=== PATIENT | male | born 1945 | race Caucasian/White ===

== ENCOUNTER 2021-01-29 08:11 | Emergency (ER) | payer MEDICARE, SELFPAY ==
[2021-01-29 08:43] VITALS: BP 160/87; PULSE 97; RESP 16; TEMP 36.1; O2SAT 98
--- NOTE | 2021-01-29 09:03 | ED.GENADULT ---
HPI - General Adult General Chief complaint: Animal Bite Stated complaint: dog bite Time Seen by Provider: 01/29/21 09:03 Source: patient and RN notes reviewed Mode of arrival: ambulatory Limitations: no limitations History of Present Illness HPI narrative: 75-year-old male presents with complaints of RT arm dog bite for the past 15 hours. Fab reports during a break up of a dog fight his RT arm was bitten by his dog or another dog. Mild discomfort. No swelling. Mild redness. No new tingling or numbness. Denies immobility. No exacerbating factors. No relieving factors. Denies altered sensation and suspected foreign body. Remains active. Tetanus vaccine NOT up to date. Fab reports not being familiar with dog or janitorial supervisor, unknown if shoots are up-to-date, awaiting police report. The patient reports he have not been diagnosed with COVID-19. The patient reports he received 2 Pfizer vaccines, 2nd dose being over 3 weeks ago. The patient reports he is not waiting for the results of a COVID-19 lab test. The patient reports he do not have fever, chills, weakness, or fatigue. The patient reports he do not have a new or worsening cough or shortness of breath. Denies chest pain. The patient reports he do not have any rhinorrhea, congestion, loss of taste, sore throat, nausea, vomiting, abdominal pain, or diarrhea. Tolerating po intake well. Denies recent traveling. Denies concerns for COVID-19 or exposures been home with limited outdoor exposure except for essential household needs and return home. At this time, patient is not suspected of having COVID-19. Some parts of this dictation were generated by voice recognition software and may contain typographical and/or grammatical inaccuracies. Related Data Allergies Allergy/AdvReac Type Severity Reaction Status Date / Time No Known Allergies Allergy Verified 01/29/21 08:26 Review of Systems Review of Systems: Narrative: CONSTITUTIONAL: Denies fever, chills, sweats. EYES: Denies visual changes, redness, discharge. ENT: Denies rhinorrhea, congestion, sore throat, otalgia. CARDIOVASCULAR: Denies chest pain, palpitations, edema. RESPIRATORY: Denies dyspnea, wheezing, cough. GASTROINTESTINAL: Denies abdominal pain, nausea, vomiting, diarrhea. SKIN: Denies rash or itching. Complains of dog bite to RT arm. No drainage. MUSCULOSKELETAL: Denies acute back pain, joint pain, or myalgia. NEUROLOGIC: Denies numbness or focal weakness. PSYCHIATRIC: Denies anxiety or depression. All other systems reviewed are negative, except as documented in HPI and below. [facility] Past Medical History Medical History (Updated 01/31/21 @ 15:13 by ROBLES Michaels) Hypertension Fab reports prior to retiring Surgical History Surgical History (Updated 01/29/21 @ 09:21 by ROBLES Michaels) History of prostate surgery Family History Family History (Updated 01/29/21 @ 09:21 by ROBLES Michaels) Mother Dementia Father , old age, peaceful in sleep No problems noted. Social History Social History (Updated 01/29/21 @ 09:22 by ROBLES Michaels) Smoking status: Never smoker Tobacco type: cigarettes Second hand tobacco smoke exposure: No Alcohol intake: current Substance use: never Substance use type: does not use Occupation/Education: retired Gender identity (if verbalized by the patient): Male Sexual Orientation (if Verbalized by the Patient): Straight or Heterosexual Comments At time of signature, agree with nurse past medical, surgical, social, and family history. There is no relevant family history pertinent to the presenting complaint. Exam Narrative: Exam Narrative: GENERAL: This is a well-nourished, well-developed patient, in no apparent distress. Talks in full sentences without deficits and ambulates with steady gait without dyspnea. HEAD: Normocephalic, atraumatic. EYES: PERRL. Sclera clear/white. Vision
[2021-01-29] MEDS: TETANUS,DIPHTHERIA,AC PERTUSSIS ADULT (0.5 ML) BOOSTRIX IM (09:19)
== END 2021-01-29 09:35 | disposition home or self-care (01) ==
PROVIDERS: Emergency Provider Nurse Practitioner Family
DX: S50.811A Abrasion of right forearm, initial encounter (principal); W54.0XXA Bitten by dog, initial encounter; Z23 Encounter for immunization; I10 Essential (primary) hypertension
CPT/HCPCS: 90471; 90715; 99213; G0463